=== PATIENT | female | born 1955 | race Caucasian/White ===

== ENCOUNTER 2021-10-13 09:03 | Outpatient (CLI) | payer MEDICARE, OTHER | END 2021-10-13 09:04 | disposition home or self-care (01) | LOC: CSHMAMMO 09:03 | PROVIDERS: ATTEND Internal Medicine | DX: Z12.31 Encounter for screening mammogram for malignant neoplasm of breast (principal); Z13.820 Encounter for screening for osteoporosis; N95.1 Menopausal and female climacteric states; M81.0 Age-related osteoporosis without current pathological fracture | CPT/HCPCS: 77063; 77067; 77080 ==

== ENCOUNTER 2022-08-04 09:10 | Outpatient (CLI) | payer MEDICARE, OTHER | END 2022-08-04 09:11 | disposition home or self-care (01) | LOC: CSHWCC 09:10 | PROVIDERS: ATTEND Preventive Medicine Undersea and Hyperbaric Medicine | DX: I87.312 Chronic venous hypertension (idiopathic) with ulcer of left lower extremity (principal); L97.829 Non-pressure chronic ulcer of other part of left lower leg with unspecified severity; R60.0 Localized edema | CPT/HCPCS: 29581 ==

== ENCOUNTER 2022-08-06 08:06 | Outpatient (CLI) | payer MEDICARE, OTHER | END 2022-08-06 08:07 | disposition home or self-care (01) | LOC: CSHWCC 08:06 | PROVIDERS: ATTEND Preventive Medicine Undersea and Hyperbaric Medicine | DX: I87.312 Chronic venous hypertension (idiopathic) with ulcer of left lower extremity (principal); L97.829 Non-pressure chronic ulcer of other part of left lower leg with unspecified severity; R60.0 Localized edema | CPT/HCPCS: 29581 ==

== ENCOUNTER 2022-08-10 14:13 | Outpatient (CLI) | payer MEDICARE, OTHER | END 2022-08-10 14:14 | disposition home or self-care (01) | LOC: CSHWCC 14:13 | PROVIDERS: ATTEND Preventive Medicine Undersea and Hyperbaric Medicine | DX: I87.312 Chronic venous hypertension (idiopathic) with ulcer of left lower extremity (principal); L97.829 Non-pressure chronic ulcer of other part of left lower leg with unspecified severity; R60.0 Localized edema | CPT/HCPCS: 29581 ==

== ENCOUNTER 2022-08-13 11:21 | Outpatient (CLI) | payer MEDICARE, OTHER | END 2022-08-13 11:22 | disposition home or self-care (01) | LOC: CSHWCC 11:21 | PROVIDERS: ATTEND Preventive Medicine Undersea and Hyperbaric Medicine | DX: I87.312 Chronic venous hypertension (idiopathic) with ulcer of left lower extremity (principal); L97.829 Non-pressure chronic ulcer of other part of left lower leg with unspecified severity; R60.0 Localized edema ==

== ENCOUNTER 2022-08-20 09:36 | Outpatient (CLI) | payer MEDICARE, OTHER | END 2022-08-20 09:37 | disposition home or self-care (01) | LOC: CSHWCC 09:36 | PROVIDERS: ATTEND Preventive Medicine Undersea and Hyperbaric Medicine | DX: I87.312 Chronic venous hypertension (idiopathic) with ulcer of left lower extremity (principal); L97.829 Non-pressure chronic ulcer of other part of left lower leg with unspecified severity; R60.0 Localized edema | CPT/HCPCS: 29581 ==

== ENCOUNTER 2022-09-02 14:41 | Outpatient (CLI) | payer MEDICARE, OTHER | END 2022-09-02 14:42 | disposition home or self-care (01) | LOC: CSHWCC 14:41 | PROVIDERS: ATTEND Preventive Medicine Undersea and Hyperbaric Medicine | DX: I87.312 Chronic venous hypertension (idiopathic) with ulcer of left lower extremity (principal); L97.829 Non-pressure chronic ulcer of other part of left lower leg with unspecified severity; R60.0 Localized edema ==

== ENCOUNTER 2022-09-10 11:07 | Outpatient (CLI) | payer MEDICARE, OTHER | END 2022-09-10 11:08 | disposition home or self-care (01) | LOC: CSHWCC 11:07 | PROVIDERS: ATTEND Preventive Medicine Undersea and Hyperbaric Medicine | DX: I87.312 Chronic venous hypertension (idiopathic) with ulcer of left lower extremity (principal); L97.829 Non-pressure chronic ulcer of other part of left lower leg with unspecified severity; R60.0 Localized edema ==

== ENCOUNTER 2022-09-14 10:18 | Outpatient (CLI) | payer MEDICARE, OTHER | END 2022-09-14 10:19 | disposition home or self-care (01) | LOC: CSHWCC 10:18 | PROVIDERS: ATTEND Nurse Practitioner Family | DX: I87.312 Chronic venous hypertension (idiopathic) with ulcer of left lower extremity (principal); L97.829 Non-pressure chronic ulcer of other part of left lower leg with unspecified severity; R60.0 Localized edema | CPT/HCPCS: 29581 ==

== ENCOUNTER 2022-09-17 08:13 | Outpatient (CLI) | payer MEDICARE, OTHER | END 2022-09-17 08:14 | disposition home or self-care (01) | LOC: CSHWCC 08:13 | PROVIDERS: ATTEND Nurse Practitioner Family | DX: I87.312 Chronic venous hypertension (idiopathic) with ulcer of left lower extremity (principal); L97.829 Non-pressure chronic ulcer of other part of left lower leg with unspecified severity ==

== ENCOUNTER 2022-09-21 10:44 | Outpatient (CLI) | payer MEDICARE, OTHER | END 2022-09-21 10:45 | disposition home or self-care (01) | LOC: CSHWCC 10:44 | PROVIDERS: ATTEND Nurse Practitioner Family | DX: I87.312 Chronic venous hypertension (idiopathic) with ulcer of left lower extremity (principal); L97.829 Non-pressure chronic ulcer of other part of left lower leg with unspecified severity; R60.0 Localized edema ==

== ENCOUNTER 2022-09-24 08:04 | Outpatient (CLI) | payer MEDICARE, OTHER | END 2022-09-24 08:05 | disposition home or self-care (01) | LOC: CSHWCC 08:04 | PROVIDERS: ATTEND Nurse Practitioner Family | DX: I87.312 Chronic venous hypertension (idiopathic) with ulcer of left lower extremity (principal); L97.829 Non-pressure chronic ulcer of other part of left lower leg with unspecified severity; R60.0 Localized edema | CPT/HCPCS: 29581; 97139; G0463; 99213 ==

== ENCOUNTER 2022-09-28 11:00 | Outpatient (CLI) | payer MEDICARE, OTHER | END 2022-09-28 11:01 | disposition home or self-care (01) | LOC: CSHWCC 11:00 | PROVIDERS: ATTEND Nurse Practitioner Family | DX: I87.312 Chronic venous hypertension (idiopathic) with ulcer of left lower extremity (principal); L97.829 Non-pressure chronic ulcer of other part of left lower leg with unspecified severity; R60.0 Localized edema | CPT/HCPCS: 29581 ==

== ENCOUNTER 2022-10-01 08:16 | Outpatient (CLI) | payer MEDICARE, OTHER | END 2022-10-01 08:17 | disposition home or self-care (01) | LOC: CSHWCC 08:16 | PROVIDERS: ATTEND Nurse Practitioner Family | DX: I87.312 Chronic venous hypertension (idiopathic) with ulcer of left lower extremity (principal); L97.829 Non-pressure chronic ulcer of other part of left lower leg with unspecified severity; R60.0 Localized edema | CPT/HCPCS: 29581 ==

== ENCOUNTER 2022-10-05 10:11 | Outpatient (CLI) | payer MEDICARE, OTHER | END 2022-10-05 10:12 | disposition home or self-care (01) | LOC: CSHWCC 10:11 | PROVIDERS: ATTEND Nurse Practitioner Family | DX: I87.312 Chronic venous hypertension (idiopathic) with ulcer of left lower extremity (principal); L97.829 Non-pressure chronic ulcer of other part of left lower leg with unspecified severity; R60.0 Localized edema | CPT/HCPCS: 29581 ==

== ENCOUNTER 2022-10-08 08:04 | Outpatient (CLI) | payer MEDICARE, OTHER | END 2022-10-08 08:05 | disposition home or self-care (01) | LOC: CSHWCC 08:04 | PROVIDERS: ATTEND Nurse Practitioner Family | DX: I87.312 Chronic venous hypertension (idiopathic) with ulcer of left lower extremity (principal); L97.829 Non-pressure chronic ulcer of other part of left lower leg with unspecified severity; R60.0 Localized edema | CPT/HCPCS: 29581 ==

== ENCOUNTER 2022-10-12 09:25 | Outpatient (CLI) | payer MEDICARE, OTHER | END 2022-10-12 09:26 | disposition home or self-care (01) | LOC: CSHWCC 09:25 | PROVIDERS: ATTEND Nurse Practitioner Family | DX: I87.312 Chronic venous hypertension (idiopathic) with ulcer of left lower extremity (principal); L97.829 Non-pressure chronic ulcer of other part of left lower leg with unspecified severity; R60.0 Localized edema | CPT/HCPCS: 29581 ==

== ENCOUNTER 2022-10-22 08:12 | Outpatient (CLI) | payer MEDICARE, OTHER | END 2022-10-22 08:13 | disposition home or self-care (01) | LOC: CSHWCC 08:12 | PROVIDERS: ATTEND Nurse Practitioner Family | DX: R60.0 Localized edema (principal) | CPT/HCPCS: 97139; G0463; 99213 ==

== ENCOUNTER 2022-10-26 10:52 | Outpatient (CLI) | payer MEDICARE, OTHER | END 2022-10-26 10:53 | disposition home or self-care (01) | LOC: CSHMAMMO 10:52 | PROVIDERS: ATTEND Internal Medicine | DX: Z12.31 Encounter for screening mammogram for malignant neoplasm of breast (principal) | CPT/HCPCS: 77063; 77067 ==

== ENCOUNTER 2023-10-27 12:28 | Outpatient (CLI) | payer MEDICARE, OTHER | END 2023-10-27 12:29 | disposition home or self-care (01) | LOC: CSHMAMMO 12:28 | PROVIDERS: ATTEND Internal Medicine | DX: Z12.31 Encounter for screening mammogram for malignant neoplasm of breast (principal) | CPT/HCPCS: 77063; 77067 ==

== ENCOUNTER 2024-01-17 09:49 | Outpatient (CLI) | payer MEDICARE, OTHER | END 2024-01-17 09:50 | disposition home or self-care (01) | LOC: CSHMAMMO 09:49 | PROVIDERS: ATTEND Internal Medicine | DX: M81.0 Age-related osteoporosis without current pathological fracture (principal); M85.851 Other specified disorders of bone density and structure, right thigh; M85.852 Other specified disorders of bone density and structure, left thigh | CPT/HCPCS: 77080 ==

== ENCOUNTER 2024-10-31 10:29 | Outpatient (CLI) | payer MEDICARE, OTHER | END 2024-10-31 10:30 | disposition home or self-care (01) | LOC: CSHMAMMO 10:29 | PROVIDERS: ATTEND Internal Medicine | DX: Z12.31 Encounter for screening mammogram for malignant neoplasm of breast (principal); N64.89 Other specified disorders of breast | CPT/HCPCS: 77063; 77067 ==

== ENCOUNTER 2025-11-12 15:28 | Outpatient (CLI) | payer MEDICARE, OTHER | END 2025-11-12 15:29 | disposition home or self-care (01) | LOC: CSHMAMMO 15:28 | PROVIDERS: ATTEND Internal Medicine | DX: Z12.31 Encounter for screening mammogram for malignant neoplasm of breast (principal) | CPT/HCPCS: 77063; 77067 ==